=== PATIENT | female | born 2005 | race Caucasian/White ===

== ENCOUNTER 2024-07-16 21:11 | Emergency (ER) | payer BC ==
[2024-07-16] MEDS ORDERED: Ondansetron PF 4 MG/2 ML Vial ONE (21:28)
[2024-07-16 21:54] LABS: #Basophils 0.18 10x3/uL (0.0-0.2); #Eosinophils 0.05 10x3/uL (0.0-0.5); #Monocytes 0.89 10x3/uL (0.0-1.1); #Neutrophils 19.26 10x3/uL (1.5-8.4); %Basophils 0.8 % (0.0-2.0); %Eosinophils 0.2 % (0.0-6.0); %Lymphocytes 5.2 % (18.0-47.0); %Monocytes 4.1 % (0.0-10.0); %Neutrophils 89.3 % (40.0-75.0); Hematocrit 48.6 % (34.9-44.5); Hemoglobin 16.8 g/dL (12.0-15.5); Mean Corpuscular HGB CONC 34.6 g/dL (32.0-36.0); Mean Corpuscular Hemoglobin 26.8 pg (27.0-33.0); Mean Corpuscular Volume 77.4 fL (81.6-98.3); Mean Platelet Volume 9.4 fL (7.4-10.4); Platelet Count 411 10x3/uL (150-450); Red Blood Cell (RBC) Count 6.28 10x6/uL (3.90-5.03); White Blood Cell (WBC) Count 21.6 10x3/uL (3.5-10.5)
[2024-07-16 22:10] LABS: BHCG - Serum Negative (NEGATIVE); Pregs Control Background? CLEAR/WHITE (CLR/WHITE); Pregs Control Bar Appear? YES (CONTROL BAR)
[2024-07-16 22:17] LABS: ALT (SGPT) 35 U/L (8-55); AST (SGOT) 27 U/L (5-34); Albumin 4.7 g/dL (3.5-5.0); Alkaline Phosphatase 86 U/L (40-100); Anion Gap 19 mmol/L (10-20); BUN (Urea Nitrogen) 15 mg/dL (7.0-18.7); Bilirubin, Total 1.2 mg/dL (0.2-1.2); Calc. Creatinine Clearance 0 mL/min (70-130); Calcium 10.5 mg/dL (7.8-10.44); Carbon Dioxide 17 mmol/L (22-29); Chloride 106 mmol/L (98-107); Estimated GFR 94; Glucose 116 mg/dL (70-105); Lipase 16 U/L (8-78); Potassium 3.7 mmol/L (3.5-5.1); Protein, Total 8.7 g/dL (6.0-8.3); Sodium 138 mmol/L (136-145)
[2024-07-16 22:35] LABS: Bilirubin Neg (Negative); Blood, Urine Negative (Negative); Glucose, Urine (Dipstick) Normal (Negative); Ketone, Urine Negative (Negative); Leukocyte Negative (Negative); Nitrite Negative (Negative); Protein, Urine (Dipstick) 30 mg/dl (Neg-Trace); Urobilinogen Normal mg/dL (Less than 2)
[2024-07-16 22:38] LABS: Clarity Hazy (Clear)
[2024-07-16] MEDS ORDERED: Promethazine HCl 12.5 MG in Sodium Chloride 0.9% 50 ML IVPB SCH (22:45)
[2024-07-16 23:07] LABS: Bacteria/HPF 2+ HPF (None Seen); CAUTI Indications for Culture Pelvic or flank pain; Mucous/LPF 4+ LPF (<2+); RBC/HPF 0-3 HPF (0-3); WBC/HPF 0-3 HPF (0-3)
[2024-07-16 23:09] LABS: Urine Culture Reflex No No
== END 2024-07-16 23:45 | disposition home or self-care (01) ==
LOC: CSHERS 21:11
DX: A09 Infectious gastroenteritis and colitis, unspecified (principal); E03.9 Hypothyroidism, unspecified; Z79.899 Other long term (current) drug therapy
CPT/HCPCS: 74176; 80053; 81001; 83690; 84703; 85025; 96361; 96374; 96375; J2405; J2550